=== PATIENT | male | born 2000 | race Two or more races ===

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

== ENCOUNTER 2019-12-14 16:06 | Emergency (ER) | payer OTHER ==
[~2019-12-14] VITALS: Ht 167.6 cm; Wt 88.5 kg
[2019-12-14] MEDS ORDERED: ASPIRINA (16:32)
== END 2019-12-14 17:29 | disposition home or self-care (01) ==
LOC: ER 16:06
DX: S91.331A Puncture wound without foreign body, right foot, initial encounter (principal); W45.0XXA Nail entering through skin, initial encounter; Y93.01 Activity, walking, marching and hiking; Y92.018 Other place in single-family (private) house as the place of occurrence of the external cause; Y99.8 Other external cause status

== ENCOUNTER 2020-03-01 09:17 | Outpatient (CLI) | payer OTHER ==
[~2020-03-01 09:17] MED LIST: ASPIRINA
== END 2020-03-01 09:32 | disposition home or self-care (01) ==
LOC: RAD 09:17
PROVIDERS: ATTEND General Practice
DX: K76.0 Fatty (change of) liver, not elsewhere classified (principal); E07.89 Other specified disorders of thyroid; R10.84 Generalized abdominal pain; Z86.59 Personal history of other mental and behavioral disorders; R73.09 Other abnormal glucose; Z13.89 Encounter for screening for other disorder; Z13.220 Encounter for screening for lipoid disorders; Z11.3 Encounter for screening for infections with a predominantly sexual mode of transmission; Z13.1 Encounter for screening for diabetes mellitus; M21.831 Other specified acquired deformities of right forearm